=== PATIENT | male | born 1970 ===

== ENCOUNTER 2017-03-03 19:13 | Emergency (ER) | payer MEDICAID, OTHER ==
[2017-03-03 19:16] VITALS: BMI 24.0
--- NOTE | 2017-03-03 19:27 | C.PDOC ---
History Of Present Illness 46M c/o withdrawal from heroin and xanax. he said he last used on saturday and had a "baby seizure" this morning around 6am that lasted for abut "two to three minutes" he says according to his dad. he says "I hit rock bottom and if you don 't admit me I'm going to kill myself." he mentions hanging as his plan. reports occasional etoh use and also cannabis. he currently is homeless. Time Seen by Provider: 03/03/17 19:25 Chief Complaint (Nursing): Psychiatric Evaluation Past Medical History Vital Signs: Last Vital Signs Temp 98.8 F 03/04/17 00:02 Pulse 64 03/04/17 00:02 Resp 18 03/04/17 00:02 BP 109/65 03/04/17 00:02 Pulse Ox 97 03/04/17 00:02 - Medical History PMH: Anxiety, Bipolar Disorder, Depression, Fractures, Gastritis, Gastrointestinal Ulcer, Schizophrenia Denies: Diabetes, Hepatitis, HIV, HTN, Chronic Kidney Disease, Seizures, Sexually Transmitted Disease - [facility] Procedures DETOXIFICATION SERVICES FOR SUBSTANCE ABUSE TREATMENT (10/04/16) DRUG DETOXIFICATION (06/08/15) GROUP PSYCHOTHERAPY (10/28/16) INDIVID PSYCHOTHERAP NEC (07/29/14) INDIVIDUAL PSYCHOTHERAPY, COGNITIVE (10/28/16) INJECT/INFUSE NEC (10/27/14) NEUROLEPTIC THERAPY (10/19/13) OTHER GROUP THERAPY (05/04/14) PSYCHIA INTERV/EVAL NEC (02/05/14) PSYCHIAT DRUG THERAP NEC (10/11/14) Family History: States: Other Other Family History: nc - Social History Hx Tobacco Use: Yes Hx Alcohol Use: Yes Hx Substance Use: Yes - Immunization History Hx Tetanus Toxoid Vaccination: No Hx Influenza Vaccination: No Hx Pneumococcal Vaccination: No Review Of Systems Except As Marked, All Systems Reviewed And Found Negative. Constitutional: Negative for: Fever, Chills Cardiovascular: Negative for: Chest Pain Respiratory: Negative for: Cough, Shortness of Breath Gastrointestinal: Negative for: Vomiting, Abdominal Pain Genitourinary: Negative for: Dysuria Musculoskeletal: Negative for: Neck Pain Neurological: Positive for: Seizures. Negative for: Weakness, Numbness, Altered Mental Status, Headache Psych: Positive for: Depression, Suicidal ideation Physical Exam - Physical Exam Appears: Non-toxic, No Acute Distress Skin: Warm, Dry, No Diaphoretic Head: Atraumatic, Normacephalic Eye(s): bilateral: PERRL, EOMI Oral Mucosa: Moist Neck: Normal ROM Cardiovascular: Rhythm Regular Respiratory: No Decreased Breath Sounds, No Accessory Muscle Use, No Rales, No Rhonchi, No Wheezing Gastrointestinal/Abdominal: Soft, No Tenderness Neurological/Psych: Oriented x3, Other (no focal deficits) ED Course And Treatment - Laboratory Results Result Diagrams: 03/03/17 19:40 03/03/17 19:40 O2 Sat by Pulse Oximetry: 98 Medical Decision Making Medical Decision Making: ecg- nsr 70, nl axis, nl int, no acute ischemia cxr- nad the patient is medically cleared for psychiatric admission Disposition - Disposition Disposition: Trans to Other Acute Care Hosp Disposition Time: 00:07 Condition: STABLE - Clinical Impression Clinical Impression: Heroin abuse, Drug dependence, Depression
[2017-03-03 19:47] LABS: BASO # 0.1 K/uL (0.0-0.2); BASO % 0.8 % (0.0-2.0); EOS # 0.3 K/uL (0.0-0.7); HEMATOCRIT 43.7 % (35.0-51.0); LYMPH # 2.6 K/uL (1.0-4.3); LYMPH % 28.3 % (20.0-40.0); MEAN CELL VOLUME 89.8 fL (80.0-94.0); MEAN CORPUSCULAR HEMOGLOBIN 30.7 pg (27.0-31.0); MEAN CORPUSCULAR HGB CONC 34.2 g/dL (33.0-37.0); MEAN PLATELET VOLUME 9.1 fL (7.2-11.7); MONO # 0.9 K/uL (0.0-0.8); RED CELL DISTRIBUTION WIDTH 12.9 % (11.5-14.5); WHITE BLOOD COUNT 9.2 K/uL (4.8-10.8)
[2017-03-03 19:54] LABS: CHLORIDE 101 mmol/L (98-107)
[2017-03-03 19:55] LABS: POTASSIUM 4.1 mmol/L (3.6-5.2); SODIUM 141 mmol/L (132-148)
[2017-03-03 19:57] LABS: ALB/GLOB RATIO 1.2 (1.0-2.1); ALKALINE PHOSPHATASE 66 U/L (38-126); ALT/SGPT 143 U/L (21-72); AST/SGOT 71 U/L (17-59); BILIRUBIN,TOTAL 0.6 mg/dL (0.2-1.3); BLOOD UREA NITROGEN 21 mg/dL (9-20); CARBON DIOXIDE 29 mmol/L (22-30); GFR AFRICAN-AMERICAN > 60; GLUCOSE,RANDOM 68 mg/dL (75-110); RBC URINE 1 /hpf (0-3); TOTAL PROTEIN 8.2 g/dL (6.3-8.3); URINE BILIRUBIN NEGATIVE (NEGATIVE); URINE BLOOD NEGATIVE (NEGATIVE); URINE COLOR Yellow (YELLOW); URINE GLUCOSE (UA) NORMAL (Normal); URINE KETONE NEGATIVE (NEGATIVE); URINE LEUKOCYTE ESTERASE NEG Leu/uL (Negative); URINE PROTEIN NEGATIVE (NEGATIVE); URINE UROBILINOGEN NORMAL mg/dL (0.2-1.0); WBC URINE < 1 /hpf (0-5)
[2017-03-03 19:58] LABS: ALCOHOL SERUM < 10 mg/dl (0-10); CALCIUM 9.1 mg/dl (8.6-10.4)
[2017-03-03 21:33] VITALS: RESP 18
[2017-03-04 00:06] VITALS: BP 109/65; PULSE 64; TEMP 98.8
--- NOTE | 2017-03-04 08:56 | RAD ---
HISTORY: Psychiatric evaluation COMPARISON: No prior. FINDINGS: LUNGS: No focal infiltrate or effusion. Increased markings at the left lung base may represent prominent epicardial fat pad versus mild atelectasis. PLEURA: No significant pleural effusion identified, no pneumothorax apparent. CARDIOVASCULAR: Normal. OSSEOUS STRUCTURES: No significant abnormalities. VISUALIZED UPPER ABDOMEN: Normal. OTHER FINDINGS: None. IMPRESSION: No focal infiltrate or effusion. Increased markings at the left lung base may represent prominent epicardial fat pad versus mild atelectasis.
--- NOTE | 2017-03-04 14:12 | CARD ---
APPROVED REPORT EKG Measurement Heart [id number] <Conclusion> Normal sinus rhythm Possible Left atrial enlargement Borderline ECG
[2017-03-06 08:02] VITALS: O2SAT 98
== END 2017-03-04 00:13 | disposition short-term general hospital (02) ==
LOC: C.ER 19:13
DX: F11.20 Opioid dependence, uncomplicated (principal); F12.10 Cannabis abuse, uncomplicated; F32.89 Other specified depressive episodes; Z59.0 Homelessness

== ENCOUNTER 2017-03-25 11:10 | Emergency (ER) | payer MEDICAID, OTHER ==
[2017-03-25 11:19] VITALS: BP 129/87; PULSE 74; RESP 18; TEMP 98.2; O2SAT 98; BMI 27.0
--- NOTE | 2017-03-25 12:04 | C.PDOC ---
History Of Present Illness 46 yr old male presents to the ER requesting detox from Xanax and heroin. Patient reports last use was last night. Notes uses heroin IV. Also notes if he doesn't take Xanax he can get a seizure. Patient denies fever, chest pain, SOB, nausea, vomiting, abdominal pain, SI or HI. Time Seen by Provider: 03/25/17 11:33 Chief Complaint (Nursing): Substance Abuse History Per: Patient History/Exam Limitations: no limitations Onset/Duration Of Symptoms: Persistent Past Medical History Reviewed: Historical Data, Nursing Documentation, Vital Signs Vital Signs: Last Vital Signs Temp 98.2 F 03/25/17 11:19 Pulse 74 03/25/17 11:19 Resp 18 03/25/17 11:19 BP 129/87 03/25/17 11:19 Pulse Ox 98 03/25/17 12:56 - Medical History PMH: Anxiety, Bipolar Disorder, Depression, Fractures, Gastritis, Gastrointestinal Ulcer, Schizophrenia - [facility] Procedures DETOXIFICATION SERVICES FOR SUBSTANCE ABUSE TREATMENT (03/04/17) DRUG DETOXIFICATION (06/08/15) GROUP PSYCHOTHERAPY (03/04/17) INDIV PSYCHOTHERAPY FOR SUBSTANCE ABUSE, COGNITIV BEHAVIORAL (03/04/17) INDIVID PSYCHOTHERAP NEC (07/29/14) INDIVIDUAL PSYCHOTHERAPY, COGNITIVE (10/28/16) INDIVIDUAL PSYCHOTHERAPY, COGNITIVE-BEHAVIORAL (03/04/17) INJECT/INFUSE NEC (10/27/14) NEUROLEPTIC THERAPY (10/19/13) OTHER GROUP THERAPY (05/04/14) PSYCHIA INTERV/EVAL NEC (02/05/14) PSYCHIAT DRUG THERAP NEC (10/11/14) Family History: States: No Known Family Hx - Social History Hx Tobacco Use: Yes Hx Alcohol Use: No Hx Substance Use: Yes - Immunization History Hx Tetanus Toxoid Vaccination: No Hx Influenza Vaccination: No Hx Pneumococcal Vaccination: No Review Of Systems Except As Marked, All Systems Reviewed And Found Negative. Constitutional: Negative for: Fever Cardiovascular: Negative for: Chest Pain Respiratory: Negative for: Shortness of Breath Gastrointestinal: Negative for: Nausea, Vomiting, Abdominal Pain Psych: Negative for: Suicidal ideation Physical Exam - Physical Exam Appears: Well, Non-toxic, No Acute Distress Skin: Warm, Dry, No Rash Head: Atraumatic, Normacephalic Eye(s): bilateral: Normal Inspection, EOMI Nose: Normal Oral Mucosa: Moist Chest: Symmetrical, No Tenderness Cardiovascular: Rhythm Regular, No Murmur Respiratory: Normal Breath Sounds, No Rales, No Wheezing Gastrointestinal/Abdominal: Normal Exam, Soft, No Tenderness, No Guarding, No Rebound Extremity: Normal ROM, No Swelling, Other ((+) Track monsivais noted on the upper extrmeity. ) Neurological/Psych: Oriented x3, Normal Speech, Normal Motor ED Course And Treatment O2 Sat by Pulse Oximetry: 98 Progress Note: Afebrile. toelrating PO. Crisis team made aware of the patient. No detox beds available at this time. Patient instructed to call back to check for available beds. Disposition - Disposition Disposition: HOME/ ROUTINE Disposition Time: 12:03 Condition: STABLE Additional Instructions: Please call [phone] for bed availability. Instructions: Opioid Dependence (ED) - Clinical Impression Clinical Impression: Opioid dependence - PA / COURT REGISTRY OFFICER / Resident Statement MD/DO has reviewed & agrees with the documentation as recorded. - Scribe Statement The provider has reviewed the documentation as recorded by the Scribe Jessica Dubose All medical record entries made by the Scribe were at my direction and personally dictated by me. I have reviewed the chart and agree that the record accurately reflects my personal performance of the history, physical exam, medical decision making, and the department course for this patient. I have also personally directed, reviewed, and agree with the discharge instructions and disposition.
== END 2017-03-25 12:05 | disposition home or self-care (01) ==
LOC: C.ER 11:10
DX: F11.20 Opioid dependence, uncomplicated (principal)